=== PATIENT | female | born 1945 | race Caucasian/White ===

== ENCOUNTER 2016-09-20 13:09 | Emergency (ER) | payer BC, MEDICARE ==
[~2016-09-20] VITALS: Ht 167.6 cm; Wt 100.0 kg
[~2016-09-20 13:09] MED LIST: HYDR25TA6 PO; OLME20TA20 PO
[2016-09-20 13:52] VITALS: Ht 167.6 cm; Wt 100.0 kg
[2016-09-20] MEDS ORDERED: HYDROCODONE/APAP (5/325) TAB PO ONE (16:00)
--- NOTE | 2016-09-20 17:11 | RADRPT ---
PROCEDURE: XR Knee. CLINICAL INDICATION: Trauma TECHNIQUE: 3 views of the left knee were obtained. The images reviewed on a PACS workstation. COMPARISON: None. FINDINGS: There is minimal degenerative change of the left knee with slight spurring of the tibial spines. Th e lateral view is slightly obliqued no definite acute fracture or dislocation is seen. No knee effu monroe is seen. The knee is slightly hyperextended. IMPRESSION: Mild degenerative change and slight hyperexpansion of the knee. No definite acute fracture or dislo cation. RPTAT: [facility] Physician Kashif Date Time Electronically viewed and signed by Physician Kashif on 09/20/2016 17:11 LE/
--- NOTE | 2016-09-20 17:13 | RADRPT ---
PROCEDURE: XR Hip. CLINICAL INDICATION: trauma TECHNIQUE: 2 views COMPARISON: 02/10/2014 FINDINGS: Left total hip replacement hardware is again seen and appears intact. No acute fracture or dislocat ion is seen. Clips are seen in the left pelvis. No lytic or blastic bony lesion. IMPRESSION: Intact left hip hardware. No definite acute fracture. RPTAT: [facility] Maria Ines Roberts Physician Date Time Electronically viewed and signed by Maria Ines Roberts Physician on 09/20/2016 17:12 LE/
[2016-09-20] MEDS ORDERED: HYDR-902 PO (17:30)
[2016-09-20] MEDS ORDERED: IBUP800T25 PO (17:30)
--- NOTE | 2016-09-20 17:35 | ERD ---
ER Documentation Chief Complaint Date/Time DATE: 09/20/16 TIME: 17:31 Chief Complaint LT KNEE & HIP PAIN, HEARD A POP GOING UP STAIRS TODAY HPI 71-year-old female who has bilateral hip replacements who was walking up some stairs and when she planted her left foot on the step and pushed up she felt a pop in the posterior part of her knee the pain is sharp and worse with movement better with rest. No swelling no ecchymosis no fall ROS All systems reviewed and are negative except as per history of present illness. Medications Home Meds Active Scripts Hydrocodone/Acetaminophen ([place] 10-325 Tablet) 1 Each Tablet, 1 TAB PO Q6H Y for PAIN, #20 TAB Prov:SUMA MILLER. DO 09/20/16 Ibuprofen* (Motrin*) 800 Mg Tab, 800 MG PO Q6H Y for PAIN AND OR ELEVATED TEMP, #30 TAB Prov:KAY MILLERSTMIREILLES A. DO 09/20/16 Reported Medications Olmesartan Medoxomil (Benicar) 20 Mg Tablet, 20 MG PO AM 07/11/11 Hydrochlorothiazide (Hydrochlorothiazide) 25 Mg Tablet, 25 MG PO AM 07/11/11 Allergies Allergies: Coded Allergies: No Known Allergies (Verified Allergy, Unknown, 11/19/13) PMhx/Soc History of Surgery: Yes (cataract surgery, tonsillectomy, hysterectomy, L THR) Anesthesia Reaction: No Hx Neurological Disorder: No Hx Respiratory Disorders: No Hx Cardiac Disorders: Yes (HTN,HX OF C/P) Hx Psychiatric Problems: No Hx Miscellaneous Medical Probl: Yes (HTN, arthritis, remote melanoma) Hx Alcohol Use: No Hx Substance Use: No Smoking Status: Former smoker FmHx Family History: No coronary disease Physical Exam Vitals Vital Signs Date Time Temp Pulse Resp B/P Pulse Ox O2 Delivery O2 Flow Rate FiO2 09/20/16 13:52 97.8 78 20 169/75 97 Physical Exam Const: Well-developed, well-nourished Head: Atraumatic, normocephalic Eyes: Normal Conjunctiva, PERRLA, EOMI, normal sclera, no nystagmus ENT: Normal External Ears, Nose and Mouth, moist mucus membranes. Neck: Full range of motion. No meningismus, no lymphadenopathy. Resp: Clear to auscultation bilaterally, no wheezing, rhonchi, rales Cardio: Regular rate and rhythm, no murmurs, S1 S2 present Abd: Soft, non tender x 4, non distended. Normal bowel sounds, no guarding or rebound, no pulsitile abdominal masses or bruits Skin: No petechiae or rashes, no ecchymosis , no maculopapular rash Back: No midline or flank tenderness Ext: No cyanosis, or edema, FROM x 4, normal inspection, neurovascularly intact x 4, there is some mild tenderness in the posterior part of the lateral knee no palpable mass no ecchymoses no calf pain negative Homans sign no ligamentous laxity Neur: Awake and alert, STR 5/5 x 4, sensation intact x 4, no focal findings, cerebellum intact Psych: Normal Mood and Affect Results 24 hrs Current Medications Medications (Trade) Dose Ordered Sig/Tomás Route PRN Reason Start Time Stop Time Status Last Admin Dose Admin Acetaminophen/ Hydrocodone Bitart ([place] (5/325)) 2 tab ONCE ONCE PO 09/20/16 16:00 09/20/16 16:01 DC 09/20/16 15:42 Procedures/MDM PROCEDURE: XR Knee. CLINICAL INDICATION: Trauma TECHNIQUE: 3 views of the left knee were obtained. The images reviewed on a PACS workstation. COMPARISON: None. FINDINGS: There is minimal degenerative change of the left knee with slight spurring of the tibial spines. The lateral view is slightly obliqued no definite acute fracture or dislocation is seen. No knee effusion is seen. The knee is slightly hyperextended. IMPRESSION: Mild degenerative change and slight hyperexpansion of the knee. No definite acute fracture or dislocation. RPTAT: [facility] Physician Kashif Date Time Electronically viewed and signed by Physician Kashif on 09/20/2016 17 :11 ERNIE/ CC: SUMA MILLER DO PROCEDURE: XR Hip. CLINICAL INDICATION: trauma TECHNIQUE: 2 views COMPARISON: 02/10/2014 FINDINGS: Left total hip replacement hardware is again seen and appears intact. No acute fracture or dislocation is seen. Clips are seen in the left pelvis. No lytic or blastic bony lesion. IMPRESSION: Intact left hip hardware. No definite acute fracture. RPTAT: [facility] Maria Ines Roberts, Physician Date Time Electronically viewed and signed by Maria Ines Roberts, Physician on 09/20/2016 17 :12 LE/ CC: SUMA MILLER DO Knee immobilizer and crutches were given follow-up with orthopedics May have a gastrocnemius tear or knee injury Departure Diagnosis: Primary Impression: Knee injury Encounter type: initial encounter Laterality: left Qualified Code: S89.92XA - Knee injury, left, initial encounter Condition: Stable Patient Instructions: Knee Pain, Uncertain Cause, Knee Immobilizer Referrals: DEMARIO GABRIEL MD, APOSTOLOS A. DO Sep 20, 2016 17:35
[2016-09-20 18:45] VITALS: BP 154/78; PULSE 88; RESP 20; TEMP 97.8
== END 2016-09-20 18:46 | disposition home or self-care (01) ==
LOC: FTE 13:09
DX: S89.92XA Unspecified injury of left lower leg, initial encounter (principal); I10 Essential (primary) hypertension; X50.9XXA Other and unspecified overexertion or strenuous movements or postures, initial encounter; Y92.9 Unspecified place or not applicable; Z87.891 Personal history of nicotine dependence; Z96.642 Presence of left artificial hip joint
CPT/HCPCS: 73510; 73562

== ENCOUNTER → 2016-09-21 | Outpatient (CLI) | payer BC, MEDICARE ==
[~2016-09-21] MED LIST changes: +HYDR-902 PO; +IBUP800T25 PO
--- NOTE | 2016-09-21 12:52 | RADRPT ---
PROCEDURE: XR pelvis. CLINICAL INDICATION: Hip pain TECHNIQUE: AP pelvis available for review. COMPARISON: 02/10/2014 FINDINGS: There are surgical clips in the pelvis. There are bilateral total hip replacements. There is normal mineralization, architecture and alignment. There is no evidence of loosening of th e prosthesis. There is no evidence of hardware failure. No fractures, dislocation or osseous lesions are identified. The joints are unremarkable. There are normal soft tissues. IMPRESSION: Bilateral total hip replacements. Otherwise unremarkable examination. RPTAT: [facility] .Jaswant Fenton MD, MD Date Time Electronically viewed and signed by .Jaswant Fenton MD, MD on 09/21/2016 12:52 .B/
--- NOTE | 2016-09-22 14:29 | RADRPT ---
PROCEDURE: Left knee radiographs. CLINICAL INDICATION: Left knee pain. TECHNIQUE: Four views. Weight bearing. Frontal, lateral, oblique, and patellar view. COMPARISON: No prior studies are available for comparison. FINDINGS: There is no fracture or dislocation. The soft tissues are normal. There are degenerative changes with osteophytes arising from all 3 joint compartment margins. There is mild medial joint compartment narrowing. There is no lytic or blastic lesion. There is no radiopaque foreign body. IMPRESSION: 1. Mild to moderate degenerative changes of the left knee. 2. No acute abnormality. RPTAT: QQ .Paco Waterman MD, MD Date Time Electronically viewed and signed by .Paco Waterman MD, on 09/22/2016 14:28 .R/
== END | disposition home or self-care (01) ==
LOC: HKI 12:06
PROVIDERS: ATTEND Orthopaedic Surgery
DX: M25.562 Pain in left knee (principal); Z96.643 Presence of artificial hip joint, bilateral
CPT/HCPCS: 72170; G0463

== ENCOUNTER → 2016-10-03 | Outpatient (CLI) | payer BC, MEDICARE | END | disposition home or self-care (01) | LOC: HKI 08:42 | PROVIDERS: ATTEND Orthopaedic Surgery | DX: M25.562 Pain in left knee (principal); S83.272A Complex tear of lateral meniscus, current injury, left knee, initial encounter | CPT/HCPCS: G0463 ==

== ENCOUNTER 2016-10-06 06:31 | Day surgery (SDC) | payer BC, MEDICARE ==
[2016-10-05 11:03] VITALS: BMI 33.1
[2016-10-06] VITALS (8 sets, daily range): BP systolic 108–133; BP diastolic 56–68; PULSE 72–94; RESP 12–19; Ht 167.6 cm; Wt 100.4 kg
[~2016-10-06] VITALS: Ht 167.6 cm; Wt 100.4 kg
[~2016-10-06 06:31] MED LIST changes: +CEFAZOLIN 2GM/50 ML (PMX) 50 ML X1 BEFORE INCISION IVPB ONE; +CELECOXIB 400 MG PO X1 DOSE PO ONE; +LACTATED RINGER'S 1,000 ML IV SCH; +PREGABALIN 300 MG PO X1 PO ONE; +oxyCODONE (CR) 10 MG TAB [oxyCONTIN] X1 DOSE PO ONE; +traMADOL 50 MG TAB X 1 DOSE PO ONE
[2016-10-06] MEDS ORDERED: ROPIVACAINE 0.5 % 30 ML VIAL ONE (06:55)
[2016-10-06] MEDS ORDERED: KETOROLAC 30 MG INJ ONE ×2 (06:56→08:57)
[2016-10-06] MEDS ORDERED: morphine SULFATE/PF (10 MG/10 ML) INJ ONE (06:56)
[2016-10-06] MEDS ORDERED: LIDOCAINE 0.5%/EPI (MDV) 50 ML INJ ONE (06:58)
[2016-10-06] MEDS ORDERED: FENTAnyl 50 MCG/ML VIAL ONE (07:12)
[2016-10-06] MEDS ORDERED: ONDANSETRON 4 MG INJ ONE (07:12)
[2016-10-06] MEDS ORDERED: ACETAMINOPHEN 1000MG/100ML IV 100 ML ONE (07:12)
[2016-10-06] MEDS ORDERED: PROPOFOL 20 ML ONE (07:12)
[2016-10-06] MEDS ORDERED: LIDOCAINE 1% (MDV) 20 ML INJ ONE (07:12)
[2016-10-06] MEDS ORDERED: DEXAMETHASONE 4 MG/ML 1 ML INJ ONE (07:12)
--- NOTE | 2016-10-06 07:26 | HPN ---
Date/Time of Note Date/Time of Note DATE: 10/06/16 TIME: 07:26 Interval H&P Admission Note Pt. seen H&P reviewed: No system changes No change from H&P on 09/30/16 by JUMANA Glaser MD October 06, 2016 07:26
[2016-10-06] MEDS ORDERED: HYDROmorphONE (0.2 MG/ML) 10ML SYG IV PRN ×3 (08:30)
[2016-10-06] MEDS ORDERED: hydrALAzine 20 MG INJ IV PRN (08:30)
[2016-10-06] MEDS ORDERED: LABETALOL HCL 20MG INJ IV PRN (08:30)
[2016-10-06] MEDS ORDERED: ONDANSETRON 4 MG INJ IV PRN (08:30)
[2016-10-06] MEDS ORDERED: FENTAnyl 50 MCG/ML VIAL IV PRN (08:30)
[2016-10-06] MEDS ORDERED: ROPIVACAINE 0.5 % 30 ML VIAL INJ ONE ×2 (08:32→08:57)
[2016-10-06] MEDS ORDERED: FAMOTIDINE 20 MG INJ ONE (08:38)
[2016-10-06] MEDS ORDERED: LIDOCAINE 0.5%/EPI (MDV) 50 ML INJ INJ ONE (08:40)
[2016-10-06] MEDS ORDERED: KETOROLAC 30 MG INJ INJ ONE (08:57)
[2016-10-06] MEDS ORDERED: morphine SULFATE/PF (10 MG/10 ML) INJ INJ ONE (08:57)
[2016-10-06] MEDS ORDERED: ROPIVACAINE 0.2% 100ML BAG INJ ONE (08:57)
--- NOTE | 2016-10-06 09:41 | OPR ---
Date/Time of Note Date/Time of Note DATE: 10/06/16 TIME: 09:40 Operative Report Free Text/Dictation Dictation # [id number] Procedure Date: October 06, 2016 Preoperative Diagnosis Left Knee LM Tear Postoperative Diagnosis Same Operation Performed Left Knee A/S and partial LM Surgeon: JUMANA VICENTE MD assistant pressman: TRINI QUIÑONEZ PA-C Anesthesia: general Anesthesiologist: ANTONIA PEARCE CRNA Tourniquet Time: None Estimated Blood Loss: none Specimens None Tubes/Drains None Complications: None Pt Condition Post Procedure: stable Disposition: PACU JUMANA VICENTE MD October 06, 2016 09:41
[2016-10-06] MEDS ORDERED: HYDROCHLOROTHIAZIDE 25 MG TAB PO SCH (10:00)
--- NOTE | 2016-10-06 10:23 | OPR ---
DATE OF OPERATION: 10/06/2016 PREOPERATIVE DIAGNOSIS: Left knee lateral meniscal tear. POSTOPERATIVE DIAGNOSIS: Left knee lateral meniscal tear. PROCEDURE PERFORMED: Left knee arthroscopy, partial lateral meniscectomy. SURGEON: Jumana Moulton MD [employer] PROFESSOR: LUCI Conner ANESTHESIA: General endotracheal intubation. ANESTHESIOLOGIST: Adele Rae CRNA TOURNIQUET TIME: 0 minutes. ESTIMATED BLOOD LOSS: Scant. INTRAVENOUS FLUIDS: 800 mL crystalloid. SPECIMENS: None. DRAINS: None. COMPLICATIONS: None. DISPOSITION: The patient tolerated the procedure well and was taken to the recovery room in stable condition. INDICATIONS: The patient is a 71-year-old woman who has had pain in the left knee with mechanical s ymptoms of catching and popping. An MRI demonstrated a lateral meniscal tear. I felt she would arthur efit from a knee arthroscopy and partial lateral meniscectomy. The risks, benefits, and alternative s of arthroscopic surgery were explained in detail to the patient. I explained the risks to include , but not be limited to, bleeding, infection, pain, stiffness, neurovascular injury, possible numbne ss, weakness, and/or paralysis anywhere from the knee down to the toes, fracture, ligamentous injury , need for additional future surgery including possible total knee arthroplasty, wound healing probl ems, blood clots, pulmonary embolism, and anesthetic complications such as heart attack, stroke, GI bleed, pneumonia and/or . Ample time was allowed for the patient to ask questions, all of whic h were addressed and answered. The patient understood the risks involved and wished to proceed. In formed consent was signed prior to the procedure. DESCRIPTION OF PROCEDURE: The patient's left knee was initialed with a marking pen in the preoperat wyatt holding area to identify the correct operative site. The patient was brought to the operating r oom and transferred from the [facility] to the operating table where the patient was anesthetiz ed and intubated. A tourniquet was placed on the left proximal thigh. The patient was given 2 gram s of intravenous Ancef 1 hour prior to the incision. The superolateral aspect of the left knee was prepped with Betadine and injected with 30 mL of 0.5% ropivacaine into the knee joint. The entire l eft knee and lower extremity were prepped and draped in usual sterile fashion. Standard arthroscopic portal incisions were made, 1 inferolateral, 1 inferomedial. The arthroscope was introduced into the inferolateral portal and the arthroscopy initiated. The suprapatellar pouch was inspected and free of loose bodies and synovitis. 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 The patella tracked well with no tilt or subluxation. The medial and lateral gutters were inspected and free of loose bodies and sy novitis. The lateral femoral condyle anteriorly showed a large area of grade IV chondromalacia. Al bobbi the medial femoral condyle, there was a focal area of grade IV chondromalacia. The medial gallo rtment was inspected and there was diffuse grade III chondromalacia along the weightbearing aspect o f the medial femoral condyle. The medial tibial plateau looked healthy with no degenerative changes . The medial meniscus was intact with no degenerative changes. The inner trochlear notch was inspe cted and ACL and PCL were in normal position, no evidence of tearing. The lateral compartment was inspected and there was a lateral meniscus tear extending from the poste rior horn to body that was debrided back to a stable edge with a combination of the sherly and Arth rocare wand. It was probed and was stable. The weightbearing aspect of the lateral femoral condyle had some mild grade II chondromalacia. The lateral tibial plateau looked healthy with no degenerat wyatt changes. At this point, the knee was irrigated through the arthroscope until the egress of flui d was free of meniscal fragments and blood. The instruments were removed. The knee was injected with 30 mL of 0.5% ropivacaine, 4 mg Duramorph and 30 mg Toradol. The portal incisions were then closed with interrupted 3-0 Monocryl and 3-0 Prolene in a vertical mattress fash ion. Skin edges were sealed with Dermabond. The wounds were covered with Adaptic, 4 x 4's and wrap ped in sterile cast padding and an Luke wrap. The patient was awakened, extubated, and taken to the recovery room in stable condition. Dictated By: JUMANA RYAN/JOCELYNN Conf#: [id number] DID#: [id number]
== END 2016-10-06 11:10 | disposition home or self-care (01) ==
LOC: SDS 06:31
PROVIDERS: ATTEND Orthopaedic Surgery
DX: M23.252 Derangement of posterior horn of lateral meniscus due to old tear or injury, left knee (principal); I10 Essential (primary) hypertension
CPT/HCPCS: 29881; 87081; J1100; J1885; J2274; J2405; J2795; J3010; J0131

== ENCOUNTER → 2016-10-14 | Outpatient (CLI) | payer BC, MEDICARE ==
[~2016-10-14] MED LIST changes: -CEFAZOLIN 2GM/50 ML (PMX) 50 ML X1 BEFORE INCISION IVPB ONE; -CELECOXIB 400 MG PO X1 DOSE PO ONE; -LACTATED RINGER'S 1,000 ML IV SCH; -PREGABALIN 300 MG PO X1 PO ONE; -oxyCODONE (CR) 10 MG TAB [oxyCONTIN] X1 DOSE PO ONE; -traMADOL 50 MG TAB X 1 DOSE PO ONE
--- NOTE | 2016-10-14 13:04 | HKNOTE ---
DATE OF SERVICE: 10/14/16 INTERVAL HISTORY: The patient presents today for her first postoperative evaluation. She is a status post left knee arthroscopy and partial meniscectomy. She is doing well overall. She denies any significant pain. She has been taking anti-inflammatories for her pain and inflammation but has avoided any narcotic pain medication. She denies any fevers or chills. She is ambulating with a cane as needed. She presents today for her first postoperative evaluation. PHYSICAL EXAMINATION: Today, she is alert and oriented x4 and in no acute distress. Exam of the left knee demonstrates the incision to be clean, dry and intact. Sutures are in place. There is some mild ecchymosis along the medial portal hole. There is no effusion. Varus and valgus forces are stable. Range of motion is 0 to 120 degrees. Compartments are otherwise soft. Homans sign is negative. She is neurovascularly intact distally. ASSESSMENT: Eight days status post left knee arthroscopy, doing well. PLAN: Sutures removed today and Steri-Strips were applied. She will begin outpatient physical therapy 2 to 3 times a week for strengthening and range of motion improvement. We will see her back in 4 weeks for repeat evaluation. If the patient has any concerns in the meantime she is to call the office. Dictated By: TRINI VERMA for JUMANA FREITAS/JOCELYNN Conf#: [id number] DID#: [id number] MTDD
== END | disposition home or self-care (01) ==
LOC: HKI 09:42
PROVIDERS: ATTEND Orthopaedic Surgery
DX: Z47.89 Encounter for other orthopedic aftercare (principal)

== ENCOUNTER → 2016-11-09 | Outpatient (CLI) | payer BC, MEDICARE | END | disposition home or self-care (01) | LOC: HKI 09:01 | PROVIDERS: ATTEND Orthopaedic Surgery | DX: S83.232D Complex tear of medial meniscus, current injury, left knee, subsequent encounter (principal) ==